=== PATIENT | female | born 1945 | race Caucasian/White ===

== ENCOUNTER 2019-12-16 20:23 | Inpatient (IN) | payer OTHER ==
[~2019-12-16] VITALS: Ht 170.2 cm; Wt 113.0 kg
[~2019-12-16 20:23] MED LIST: BENA10TA84; DIAZ5TAB; HYDR-1421; TRIA25CA
[2019-12-16] MEDS ORDERED: SODIUM CHLORIDE 0.9% 1,000 ML IV ONE (22:45)
[2019-12-16] MEDS ORDERED: MORPHINE SULFATE 4 MG/ML SYR/VIAL IV ONE (22:45)
[2019-12-16] MEDS ORDERED: ONDANSETRON HCL 4 MG/2 ML VIAL IV ONE (22:45)
[2019-12-16 22:47] LABS: Urine Bacteria FEW /hpf (None Seen); Urine Blood Negative /uL (Negative); Urine Specific Gravity 1.008 (1.001-1.035); Urine WBC 2 /hpf (0 - 5)
[2019-12-16 23:24] LABS: Basophils # (auto) 0.1 10 ^3/uL (0-0.2); Basophils % (auto) 0.9 % (0.0-2.0); Eosinophils # (auto) 0 10 ^3/uL (0-0.8); Eosinophils % (auto) 0.1 % (0.0-7.0); Hematocrit 38.3 % (36.0-46.0); Hemoglobin 12.7 g/dL (12.2-16.2); Lymphocytes # (auto) 0.4 10 ^3/uL (0.4-5.4); Mean Corpuscular Hemoglobin 30.1 pg (28.0-32.0); Mean Corpuscular Hgb Conc. 33.2 g/dL (32.0-36.0); Mean Corpuscular Volume 90.6 fL (80.0-100.0); Monocytes # (auto) 1.4 10 ^3/uL (0-1.3); Monocytes % (auto) 10.4 % (0.0-12.0); Neutrophils # (auto) 11.7 10 ^3/uL (1.6-8.6); Neutrophils % (auto) 85.6 % (37.0-80.0); Platelet Count (auto) 233 10^3/uL (140-450); Red Blood Cells 4.23 10^6/uL (4.0-5.20); Red Cell Distribution Width 15.3 % (11.8-14.3); White Blood Cell 13.7 10^3/uL (4.4-10.8)
[2019-12-16 23:44] LABS: Amylase 22 U/L (25-115); Anion Gap 5 (5-15); Blood Urea Nitrogen 10 mg/dL (7-18); Calcium 8.7 mg/dL (8.5-10.1); Carbon Dioxide 28 mmol/L (21-32); Chloride 98 mmol/L (98-107); Glucose 126 mg/dL (74-106); Lipase 41 U/L (73-393); Potassium 3.9 mmol/L (3.5-5.1); Sodium 131 mmol/L (136-145)
[2019-12-16 23:58] LABS: Alanine Aminotransferase 23 U/L (13-56); Alkaline Phosphatase 111 U/L (45-117); Aspartate Aminotransferase 19 U/L (15-37); BUN/Creatinine Ratio 11.2; Bilirubin, Total 0.6 mg/dL (0.2-1.0); GFR African American 80 mL/min; GFR Non-African American 66 mL/min; Total Protein 7.2 g/dL (6.4-8.2)
[2019-12-17 02:24] LABS: INR 0.97 (0.9-1.15)
[2019-12-17] MEDS ORDERED: ONDANSETRON HCL 4 MG/2 ML VIAL IV ONE ×2 (03:00→06:30)
[2019-12-17] MEDS ORDERED: HYDROmorphone HCL 2 MG/ML VL IV ONE ×2 (03:00→06:30)
[2019-12-17] MEDS ORDERED: SODIUM CHLORIDE 0.9% 1,000 ML IV ONE (06:15)
[2019-12-17] MEDS ORDERED: VANCOMYCIN 1GM/250ML 250 ML IV ONE (06:15)
[2019-12-17] MEDS ORDERED: PIPERACILLIN-TAZOB 3.375GM 100 ML IV ONE (06:15)
[2019-12-17] MEDS ORDERED: SODIUM CHLORIDE 0.9% 1,000 ML IV SCH ×2 (06:34→07:20)
[2019-12-17] MEDS ORDERED: ACETAMINOPHEN 325 MG TAB PO PRN (06:45)
[2019-12-17] MEDS ORDERED: HYDROcodone-ACET 5/325MG TAB PO PRN (06:45)
[2019-12-17] MEDS ORDERED: DEXTROSE (50%) 50ML SYRG IV PRN (06:45)
[2019-12-17] MEDS ORDERED: MORPHINE SULF INJ 2 MG/ML SYRINGE 1ML IV PRN (06:45)
[2019-12-17] MEDS ORDERED: ONDANSETRON HCL 4 MG/2 ML VIAL IV PRN (06:45)
[2019-12-17] MEDS ORDERED: DOCUSATE SOD 100 MG CAP PO PRN (06:45)
[2019-12-17 08:45] LABS: Basophils # (auto) 0 10 ^3/uL (0-0.2); Basophils % (auto) 0.2 % (0.0-2.0); Eosinophils # (auto) 0 10 ^3/uL (0-0.8); Eosinophils % (auto) 0.2 % (0.0-7.0); Hematocrit 36.2 % (36.0-46.0); Hemoglobin 11.9 g/dL (12.2-16.2); Lymphocytes # (auto) 0.5 10 ^3/uL (0.4-5.4); Lymphocytes % (auto) 4.2 % (10.0-50.0); Mean Corpuscular Hemoglobin 29.9 pg (28.0-32.0); Mean Corpuscular Hgb Conc. 32.9 g/dL (32.0-36.0); Mean Corpuscular Volume 91.1 fL (80.0-100.0); Monocytes # (auto) 1.2 10 ^3/uL (0-1.3); Monocytes % (auto) 10.4 % (0.0-12.0); Neutrophils # (auto) 9.8 10 ^3/uL (1.6-8.6); Nucleated Red Blood Cells % 0.1 %; Platelet Count (auto) 221 10^3/uL (140-450); Red Blood Cells 3.98 10^6/uL (4.0-5.20); Red Cell Distribution Width 15.4 % (11.8-14.3); White Blood Cell 11.6 10^3/uL (4.4-10.8)
[2019-12-17 09:01] LABS: Calcium 8.2 mg/dL (8.5-10.1); Potassium 3.6 mmol/L (3.5-5.1)
[2019-12-17] MEDS ORDERED: cefTRIAXone 1GM/50ML D5W 50 ML IV SCH (10:00)
--- NOTE | 2019-12-17 11:22 | NUR ---
Report Received report from COMPLIANCE REPRESENTATIVEJoanna.
--- NOTE | 2019-12-17 11:26 | NUR ---
Patient Arrived Patient arrived to unit from ER. No signs of distress at this time. VS: 98.0, HR 96, RR 21, 98% on RA, 149/73.
--- NOTE | 2019-12-17 11:30 | NUR ---
at Bedside Dr. Orourke at bedside, new orders received.
[2019-12-17] MEDS ORDERED: ACCU-CHEK COMFORT CURVE STRIP VI SCH (12:00)
[2019-12-17] MEDS ORDERED: metroNIDAZOLE 500MG/100ML 100 ML IV SCH (12:00)
[2019-12-17] MEDS ORDERED: InsuLIN REG 1unit/0.01ml Soln (100units/ml) SC SCH (12:00)
[2019-12-17] MEDS: HYDROmorphone HCL 2 MG/ML VL IV PRN ×2 (12:19→15:59)
--- NOTE | 2019-12-17 12:30 | NUR ---
[facility] Received call from Yunier PearlProduct Safety Lead, at [facility] [place], patient accepted to room 267A.
[2019-12-17] MEDS ORDERED: ATOR40TA52 PO (12:38)
[2019-12-17] MEDS ORDERED: HCTZ25T PO (12:38)
[2019-12-17] MEDS ORDERED: FLUO-125 PO (12:38)
[2019-12-17] MEDS ORDERED: BENA20TA14 PO (12:38)
[2019-12-17] MEDS ORDERED: ATEN50TA PO (12:38)
[2019-12-17 13:00] VITALS: BP 149/73
[2019-12-17 13:18] VITALS: BP 147/73
--- NOTE | 2019-12-17 13:37 | NUR ---
[facility] Spoke with Maria Esther fonseca [facility] regarding need for transfer. Per Maria Esther sandoval [facility] [phone], #[phone]
--- NOTE | 2019-12-17 13:41 | NUR ---
Called [facility] Spoke with Tory regarding transport. see supervisor time at 1600.
--- NOTE | 2019-12-17 14:36 | NUR ---
Refused Yee Patient refusing yee catheter at this time. Addendum: 12/17/19 at 1447 by TED COLEMAN RN RN Patient educated on risks and benefits. Verbalized understanding. States that she has had a bladder and rectal prolapse and is uncomfortable with getting catheter put in at this time. States she would prefer to wait until she knows whether she will be having surgery.
--- NOTE | 2019-12-17 14:37 | NUR ---
Call[facility] for report. No answer at this time.
--- NOTE | 2019-12-17 14:47 | NUR ---
Called [facility] to give report. Report given to CRISTELA Cho.
--- NOTE | 2019-12-17 16:08 | NUR ---
Discharge/Transfer Discharge instructions given as ordered. Encourage to follow up with PMD as instructed. All questions and concerns addressed. Patient verbalized understanding. Medication reconciliation form completed and copy given to patient. Home medications returned to patient. Patient discharged with IV on Right AC, [facility] RN aware, IV is intact, patent and flushes easily. Telemetry unit returned to ICU. Patient taken to vehicle via gurney with all personal belongings, accompanied by [facility] staff. Receiving RN aware of patient refusing yee catheter at this time. No distress noted at time of departure.
[2019-12-17] MEDS ORDERED: ATORVASTATIN 20 MG TAB PO SCH (18:00)
[2019-12-17] MEDS ORDERED: PANTOPRAZOLE 40 MG/10 ML VIAL INJ IV SCH (22:00)
--- NOTE | 2019-12-18 12:35 | NUR ---
No call or page received regarding transfer order to [facility].
== END 2019-12-17 16:00 | disposition short-term general hospital (02) | DRG 372 ==
LOC: EDBD 20:23 → ER 20:23 → TELE 20:24 → TELE-WESTW 12-17 11:33
PROVIDERS: ADMIT Hospitalist; ATTEND Hospitalist
DX: K65.1 Peritoneal abscess (principal); N39.0 Urinary tract infection, site not specified; E78.5 Hyperlipidemia, unspecified; F32.9 Major depressive disorder, single episode, unspecified; I10 Essential (primary) hypertension; I25.2 Old myocardial infarction; K27.9 Peptic ulcer, site unspecified, unspecified as acute or chronic, without hemorrhage or perforation; Z85.42 Personal history of malignant neoplasm of other parts of uterus; Z87.440 Personal history of urinary (tract) infections; F41.9 Anxiety disorder, unspecified; M06.9 Rheumatoid arthritis, unspecified; K57.30 Diverticulosis of large intestine without perforation or abscess without bleeding
CPT/HCPCS: 36415; 71045; 74176; 80048; 80053; 80061; 81001; 82150; 82962; 83036; 83605; 83690; 83735; 83880; 84484; 85025; 85379; 85610; 85730; 87040; 96361; 96365; 96366; 96367; 96368; 96375; 96376; 99291; G0378; J0696; J2405; J2543; J3490